=== PATIENT | male | born 1950 | race African-American/Black ===

== ENCOUNTER 2022-09-01 08:48 | Observation (INO) ==
--- NOTE | 2022-09-01 08:55 | DR.GENAD ---
HPI Time Seen Time Seen by Provider: 09/01/22 08:54 COVID-19 Coronavirus risk:travel/contact w/high risk person: No Has patient experienced Coronavirus symptoms: No Nurses notes reviewed Nurses Notes Review: Yes PE Vital Signs Vitals: Temperature 99.7 F Pulse Rate 105 Respiratory Rate 18 Blood Pressure 133/72 O2 Sat by Pulse Oximetry 98 ROR Labs Reviewed Result Diagrams: 09/04/22 06:25 09/04/22 06:25 Laboratory: 09/01/22 09:30 Urine,Clean Catch Urine Culture - Final 09/01/22 10:10 Blood Blood Culture - Preliminary 09/01/22 09:54 Blood Blood Culture - Preliminary WBC 7.9 X10^3/uL (3.6-10.0) 09/01/22 09:54 RBC 5.78 X10^6/uL (4.7-6.0) 09/01/22 09:54 Hgb 13.1 g/dL (13.5-18.0) L 09/01/22 09:54 Hct 41.0 % (42.0-54.0) L 09/01/22 09:54 MCV 70.9 fL (80.0-100.0) L 09/01/22 09:54 MCH 22.7 pg (27.0-34.0) L 09/01/22 09:54 MCHC 31.9 g/dL (33.0-35.0) L 09/01/22 09:54 RDW 18.6 % (11.6-16.5) H 09/01/22 09:54 Plt Count 168 X10^3/uL (150.0-450.0) 09/01/22 09:54 Plt Count Comment Adequate (ADEQUATE) 09/01/22 09:54 MPV 9.1 fL (7.4-11.0) 09/01/22 09:54 Neut % (Auto) 60.1 % (42.0-75.0) 09/01/22 09:54 Lymph % (Auto) 18.2 % (21.0-51.0) L 09/01/22 09:54 [place] % (Auto) 19.9 % (0.0-13.0) H 09/01/22 09:54 Eos % (Auto) 0.3 % (0.9-2.9) L 09/01/22 09:54 Baso % (Auto) 1.5 % (0.2-1.0) H 09/01/22 09:54 Neut # (Auto) 4.8 x10^3/uL (2.2-4.8) 09/01/22 09:54 Lymph # (Auto) 1.4 X10^3/uL (1.3-2.9) 09/01/22 09:54 [place] # (Auto) 1.6 x10^3/uL (0.3-0.8) H 09/01/22 09:54 Eos # (Auto) 0.0 x10^3/uL (0.0-0.2) 09/01/22 09:54 Baso # (Auto) 0.1 X10^3/uL (0.0-0.1) 09/01/22 09:54 Absolute Nucleated RBC 0.1 /100WBC 09/01/22 09:54 Plt Morphology Comment Normal (NORMAL) 09/01/22 09:54 RBC Morphology Abnormal (NORMAL) 09/01/22 09:54 Hypochromasia Slight A 09/01/22 09:54 Anisocytosis Slight A 09/01/22 09:54 Microcytosis Slight A 09/01/22 09:54 Target Cells Present 09/01/22 09:54 PT 14.3 SECONDS (11.8-14.3) 09/01/22 09:54 INR Target Range - 09/01/22 09:54 INR 1.14 (0.8-1.3) 09/01/22 09:54 APTT 31.9 SECONDS (22.9-36.5) 09/01/22 09:54 PTT Comment - 09/01/22 09:54 Sodium 134 mmol/L (136-145) L 09/01/22 10:10 Corrected Sodium 135 mmol/L (136-145) L 09/01/22 10:10 Potassium 4.2 mmol/L (3.5-5.1) 09/01/22 10:10 Chloride 100 mmol/L (98-107) 09/01/22 10:10 Carbon Dioxide 25.3 mmol/L (21-32) 09/01/22 10:10 BUN 7 mg/dL (7-18) 09/01/22 10:10 Creatinine 1.31 mg/dL (0.70-1.30) H 09/01/22 10:10 Est GFR (MDRD) Af Amer > 60 (>60) 09/01/22 10:10 Est GFR (MDRD) Non-Af 57 (>60) L 09/01/22 10:10 Glucose 151 mg/dL (65-99) H 09/01/22 10:10 Lactic Acid 2.2 mmol/L (0.4-2.0) H 09/01/22 10:10 Calcium 8.7 mg/dL (8.5-10.1) 09/01/22 10:10 Corrected Calcium 9.3 mg/dL (8.5-10.1) 09/01/22 10:10 Phosphorus 2.9 mg/dL (2.6-4.7) 09/01/22 09:54 Magnesium 1.5 mg/dL (2.0-2.9) L 09/01/22 09:54 Total Bilirubin 0.70 mg/dL (0.2-1.0) 09/01/22 10:10 AST 30 Units/L (15-37) 09/01/22 10:10 ALT 28 Units/L (12-78) 09/01/22 10:10 Alkaline Phosphatase 79 Units/L (46-116) 09/01/22 10:10 Creatine Kinase 222 Units/L (39-308) 09/01/22 10:10 Troponin I High Sens 33.7 ng/L (4.0-60.0) 09/01/22 10:10 B-Natriuretic Peptide 20.0 pg/mL (0-79) 09/01/22 09:54 Total Protein 6.9 g/dL (6.4-8.2) 09/01/22 10:10 Albumin 3.2 g/dL (3.4-5.0) L 09/01/22 10:10 Globulin 3.7 g/dL (2.5-4.5) 09/01/22 10:10 Albumin/Globulin Ratio 0.9 Ratio (1.1-2.1) L 09/01/22 10:10 Amylase 89 Units/L (25-115) 09/01/22 09:54 Lipase 61 Units/L (73-393) L 09/01/22 09:54 Specimen Type Clean catch urine 09/01/22 09:30 Urine Color Yellow (YELLOW) 09/01/22 09:30 Urine Appearance Cloudy (CLEAR) 09/01/22 09:30 Urine pH 6.0 (5.0 - 8.0) 09/01/22 09:30 Ur Specific [place] 1.020 (1.000-1.030) 09/01/22 09:30 Urine Protein 2+ (NEGATIVE) 09/01/22 09:30 Urine Glucose (UA) 4+ (NEGATIVE) 09/01/22 09:30 Urine Ketones 1+ (NEGATIVE) 09/01/22 09:30 Urine Blood 2+ (NEGATIVE) 09/01/22 09:30 Urine Nitrite Positive (NEGATIVE) 09/01/22 09:30 Urine Bilirubin Negative (NEGATIVE) 09/01/22 09:30 Urine Urobilinogen Normal (NORMAL) 09/01/22 09:30 Ur Leukocyte Esterase 2+ (NEGATIVE) 09/01/22 09:30 Urine RBC 0-2 /HPF (0-3) 09/01/22 09:30 Urine WBC 30-50 /HPF (0-5) A 09/01/22 09:30 Ur Squamous Epith Cells Few /HPF (NEGATIVE) 09/01/22 09:30 Urine Bacteria 2+ /HPF (NEGATIVE) 09/01/22 09:30 Hyaline Casts Rare /LPF (NEGATIVE) 09/01/22 09:30 Ur Culture Indicated? Yes/culture set up 09/01/22 09:30 Acetone, Semi-Quant Negative (NEGATIVE) 09/01/22 09:54 SARS-CoV-2 (PCR) Positive (NEGATIVE) A 09/01/22 09:20 Influenza Type A (PCR) Negative (NEGATIVE) 09/01/22 09:20 Influenza Type B (PCR) Negative (NEGATIVE) 09/01/22 09:20 RSV (PCR) Negative (NEGATIVE) 09/01/22 09:20 Opioid Opioid Risk Tool Total: 0 Total Score Risk Category: Low Risk Copyright: Guy RODRIGUEZ predicting aberrant behaviors Discharge Plan Diagnosis Discharge Problem: Sepsis, COVID-19 virus infection, Acute dehydration, Bronchitis, Hyperglycemia, UTI (urinary tract infection) Discharge Plan Patient Disposition: 09 ADMITTED INPATIENT Condition: Stable
--- NOTE | 2022-09-01 09:11 | EKG ---
Test Reason : HTN Blood Pressure : */* mmHG Vent. Rate : 106 BPM Atrial Rate : 106 BPM P-R Int : 144 ms QRS Dur : 88 ms QT Int : 332 ms P-R-T Axes : 64 28 14 degrees QTc Int : 441 ms Sinus tachycardia Nonspecific T wave abnormality Abnormal ECG No previous ECGs available Confirmed by Victor Manuel Myles ([id number]) on 09/01/2022 3:52:55 PM Referred By: Confirmed By: Victor Manuel Myles
[2022-09-01 09:13] VITALS: BMI 37.8
--- NOTE | 2022-09-01 10:05 | CT ---
HISTORYFever and chillsSTUDYCT abdomen and pelvis without contrastCOMPARISONNoneTECHNIQUEMultiple axial images of the abdomen and pelvis were obtained from the lung bases to the pubic symphysis without the administration of IV contrast. Dose reduction techniques including Automated Exposure Control (AEC) and adjustment of mA and kV were utilized.FINDINGSThe visualized portions of the lung bases are unremarkable . The liver, spleen, pancreas, kidneys, and adrenal glands are unremarkable in their CT appearance. The gallbladder is unremarkable in its CT appearance . No significant mesenteric lymphadenopathy or stranding can be observed. No free fluid or free air is seen within the abdomen. The appendix is not definitely identified. However, no pericecal stranding or fluid can be identified to suggest secondary signs of appendicitis. No bowel wall thickening or bowel dilatation is present. The colon is unremarkable. Specifically, there is no diverticulosis noted within the sigmoid colon. A small [place] diverticulum extending from the region of the left UVJ is observed measuring 1.9 x 1.6 cm. The bony structures are grossly intact.IMPRESSIONA small Hutch diverticulum of the urinary bladder is observed measuring 1.9 x 1.6 cm as detailed above. Otherwise, unremarkable evaluation of the abdomen and pelvis without contrast.Electronically signed by: ELENA TORRES (Sep 01, 2022 10:04:47)
--- NOTE | 2022-09-01 10:08 | CT ---
HISTORYPAIN IN LEFT HIP, TRUMASTUDYLOWER EXT W/O CONCOMPARISONNoneTECHNIQUEMultiple axial images of the left hip were obtained from the superior portions of the iliac crest to the level the proximal femur without administration of IV contrast. Sagittal and coronal reformats were performed and reviewed. Dose reduction techniques including Automated Exposure Control (AEC) and adjustment of mA and kV were utilized.FINDINGSNo acute cortical disruption or dislocation can be identified. Superior and inferior pubic rami appear unremarkable. The femoral neck appears intact. The visualized portions of the soft tissue pelvis are unremarkable.IMPRESSIONUnremarkable evaluation of the left hip.Electronically signed by: ELENA TORRES (Sep 01, 2022 10:07:38)
--- NOTE | 2022-09-01 10:13 | RAD ---
HISTORYCOUGHSTUDYSingle-view chestCOMPARISONNoneFINDINGSThe trachea is midline. The cardiac silhouette is enlarged with a tortuous thoracic aorta . The lungs are clear without focal infiltrate or effusion. The bony thorax is unremarkable.IMPRESSIONNo acute cardiopulmonary disease.Electronically signed by: ELENA TORRES (Sep 01, 2022 10:11:29)
[2022-09-01 10:18] LABS: BASOPHILS # (AUTO) 0.1 X10^3/uL (0.0-0.1); BASOPHILS % (AUTO) 1.5 % (0.2-1.0); EOSINOPHILS % (AUTO) 0.3 % (0.9-2.9); HEMOGLOBIN 13.1 g/dL (13.5-18.0); LYMPHOCYTES # (AUTO) 1.4 X10^3/uL (1.3-2.9); LYMPHOCYTES % (AUTO) 18.2 % (21.0-51.0); MEAN CORPUSCULAR HEMOGLOBIN 22.7 pg (27.0-34.0); MEAN CORPUSCULAR HGB CONC 31.9 g/dL (33.0-35.0); MEAN CORPUSCULAR VOLUME 70.9 fL (80.0-100.0); MEAN PLATELET VOLUME 9.1 fL (7.4-11.0); MONOCYTES # (AUTO) 1.6 x10^3/uL (0.3-0.8); MONOCYTES % (AUTO) 19.9 % (0.0-13.0); NEUTROPHILS # (AUTO) 4.8 x10^3/uL (2.2-4.8); NEUTROPHILS % (AUTO) 60.1 % (42.0-75.0); RED BLOOD COUNT 5.78 X10^6/uL (4.7-6.0); RED CELL DISTRIBUTION WIDTH 18.6 % (11.6-16.5); WHITE BLOOD COUNT 7.9 X10^3/uL (3.6-10.0)
[2022-09-01 10:35] LABS: ALANINE AMINOTRANSFERASE 28 Units/L (12-78); ALBUMIN 3.2 g/dL (3.4-5.0); ALKALINE PHOSPHATASE 79 Units/L (46-116); ASPARTATE AMINO TRANSFERASE 30 Units/L (15-37); BLOOD UREA NITROGEN 7 mg/dL (7-18); CALCIUM 8.7 mg/dL (8.5-10.1); CARBON DIOXIDE 25.3 mmol/L (21-32); CHLORIDE 100 mmol/L (98-107); COR CA(FOR HYPOALB) 9.3 mg/dL (8.5-10.1); COR NA(FOR HYPERGLY) 135 mmol/L (136-145); CREATINE KINASE 222 Units/L (39-308); CREATININE 1.31 mg/dL (0.70-1.30); SODIUM 134 mmol/L (136-145); TOTAL PROTEIN 6.9 g/dL (6.4-8.2); eGFR NON BLACK RACES 57 (>60)
[2022-09-01 10:38] LABS: LACTIC ACID 2.2 mmol/L (0.4-2.0)
[2022-09-01 10:59] LABS: PLATELET MORPHOLOGY COMMENT NORMAL (NORMAL)
[2022-09-01 11:00] LABS: ANISOCYTOSIS SLIGHT; HYPOCHROMASIA SLIGHT; TARGET CELLS PRESENT
[2022-09-01 11:01] LABS: MICROCYTOSIS SLIGHT
[2022-09-01] MEDS ORDERED: ZOSYN VIAL 3.375 GRAMS 3.375 G in NS 100 ML IV 100 ML IV ONE (12:48)
[2022-09-01] MEDS ORDERED: ZOSYN VIAL 3.375 GRAMS IV ONE (12:57)
[2022-09-01] MEDS ORDERED: NS 250 ML IV 250 ML IV ONE (12:58)
[2022-09-01 13:15] LABS: BILIRUBIN,URINE NEGATIVE (NEGATIVE); BLOOD/HEMOGLOBIN,URINE 2+ (NEGATIVE); GLUCOSE, URINE 4+ (NEGATIVE); KETONES,URINE 1+ (NEGATIVE); LEUKOCYTE ESTERASE ,URINE 2+ (NEGATIVE); NITRITES,URINE POSITIVE (NEGATIVE); PROTEIN,URINE 2+ (NEGATIVE); UROBILINOGEN,URINE NORMAL (NORMAL)
[2022-09-01 13:18] LABS: SERUM ACETONE NEGATIVE (NEGATIVE)
[2022-09-01 13:23] LABS: APPEARANCE,URINE CLOUDY (CLEAR); COLOR,URINE YELLOW (YELLOW)
[2022-09-01 13:24] LABS: BACTERIA,URINE 2+ /HPF (NEGATIVE); HYALINE CASTS, URINE RARE /LPF (NEGATIVE); RBC,URINE 0-2 /HPF (0-3); SQUAMOUS EPITHELIAL CELL,UR FEW /HPF (NEGATIVE)
[2022-09-01 13:50] LABS: INR 1.14 (0.8-1.3)
[2022-09-01 13:52] LABS: MAGNESIUM 1.5 mg/dL (2.0-2.9); PHOSPHORUS 2.9 mg/dL (2.6-4.7)
[2022-09-01 14:03] LABS: ABG BASE EXCESS 2.6 mmol/L (-2.0-2.0); ABG HCO3 26.2 mmol/L (22-26)
[2022-09-01 14:04] LABS: ABG ALLEN TEST POS
[2022-09-01] MEDS ORDERED: NS 1,000 ML IV 1,000 ML ONE (14:32)
[2022-09-01 15:54] LABS: LACTIC ACID 1.9 mmol/L (0.4-2.0)
[2022-09-01] MEDS: ZOSYN VIAL 3.375 GRAMS 3.375 G in NS 100 ML IV 100 ML IV SCH ×2 (16:08→21:05)
[2022-09-01] MEDS: NS 1,000 ML IV 1,000 ML IV SCH ×2 (16:09→23:41)
[2022-09-01] MEDS ORDERED: ULTRAM PO PRN ×2 (16:26→20:12)
[2022-09-01] MEDS ORDERED: TYLENOL 325 MG TAB PO PRN (16:26)
[2022-09-01] MEDS ORDERED: MAGNESIUM SULFATE 1 GRAM/100 mL PREMIX 1 G/100 ML BAG IV PRN (16:33)
[2022-09-01] MEDS ORDERED: MAGNESIUM SULFATE 1 GRAM/100 mL PREMIX 1 G/100 ML BAG IV ONE (16:49)
[2022-09-01] MEDS ORDERED: TYLENOL 325 MG TAB PO ONE (16:49)
[2022-09-01] MEDS ORDERED: ASPIRIN PO SCH (17:00)
[2022-09-01] MEDS ORDERED: LIPITOR TAB 20 MG PO SCH (17:00)
[2022-09-01] MEDS ORDERED: PriLOSEC PO SCH (17:00)
[2022-09-01] MEDS ORDERED: ZANAFLEX PO PRN ×2 (17:00→20:14)
[2022-09-01] MEDS ORDERED: SNACK - Diabetic Appropriate PO SCH (20:00)
[2022-09-01] MEDS ORDERED: CARDURA PO SCH (21:00)
[2022-09-01] MEDS ORDERED: GLUCOTROL PO SCH (21:00)
[2022-09-01] MEDS: ZESTRIL TAB 10 MG PO SCH (21:05)
[2022-09-01] MEDS: CARDURA PO SCH (21:05)
[2022-09-01 22:10] LABS: LACTIC ACID 1.1 mmol/L (0.4-2.0)
[2022-09-01] MEDS: TYLENOL 325 MG TAB PO PRN (23:41)
[2022-09-02 03:05] LABS: ALANINE AMINOTRANSFERASE 30 Units/L (12-78); ALBUMIN 2.7 g/dL (3.4-5.0); ALKALINE PHOSPHATASE 72 Units/L (46-116); ASPARTATE AMINO TRANSFERASE 39 Units/L (15-37); BLOOD UREA NITROGEN 9 mg/dL (7-18); CALCIUM 7.9 mg/dL (8.5-10.1); CARBON DIOXIDE 26.3 mmol/L (21-32); CHLORIDE 102 mmol/L (98-107); COR CA(FOR HYPOALB) 8.9 mg/dL (8.5-10.1); COR NA(FOR HYPERGLY) 137 mmol/L (136-145); CREATININE 1.37 mg/dL (0.70-1.30); MAGNESIUM 1.8 mg/dL (2.0-2.9); SODIUM 135 mmol/L (136-145); TOTAL PROTEIN 5.9 g/dL (6.4-8.2); eGFR NON BLACK RACES 54 (>60)
[2022-09-02 03:18] LABS: BASOPHILS # (AUTO) 0.1 X10^3/uL (0.0-0.1); BASOPHILS % (AUTO) 1.8 % (0.2-1.0); EOSINOPHILS % (AUTO) 0.5 % (0.9-2.9); HEMATOCRIT 37.4 % (42.0-54.0); HEMOGLOBIN 11.8 g/dL (13.5-18.0); LYMPHOCYTES % (AUTO) 19.2 % (21.0-51.0); MEAN CORPUSCULAR HEMOGLOBIN 22.3 pg (27.0-34.0); MEAN CORPUSCULAR HGB CONC 31.5 g/dL (33.0-35.0); MEAN CORPUSCULAR VOLUME 70.7 fL (80.0-100.0); MEAN PLATELET VOLUME 9.3 fL (7.4-11.0); MONOCYTES # (AUTO) 1.2 x10^3/uL (0.3-0.8); MONOCYTES % (AUTO) 23.3 % (0.0-13.0); NEUTROPHILS # (AUTO) 2.7 x10^3/uL (2.2-4.8); NEUTROPHILS % (AUTO) 55.2 % (42.0-75.0); RED CELL DISTRIBUTION WIDTH 18.4 % (11.6-16.5); WHITE BLOOD COUNT 4.9 X10^3/uL (3.6-10.0)
[2022-09-02 03:31] LABS: BAND NEUTROPHILS % 3 % (0-10); BASOPHILS % (MANUAL) 2 % (0-1)
[2022-09-02 03:32] LABS: ANISOCYTOSIS SLIGHT; HYPOCHROMASIA 1+; MICROCYTOSIS SLIGHT; PLATELET MORPHOLOGY COMMENT NORMAL (NORMAL); SCHISTOCYTES SLIGHT; TARGET CELLS 1+
[2022-09-02] MEDS: ZOSYN VIAL 3.375 GRAMS 3.375 G in NS 100 ML IV 100 ML IV SCH ×3 (05:06→21:10)
[2022-09-02] MEDS: MAGNESIUM SULFATE 1 GRAM/100 mL PREMIX 1 G/100 ML BAG IV PRN ×2 (05:56→09:29)
[2022-09-02] MEDS: NS 1,000 ML IV 1,000 ML IV SCH ×3 (05:56→14:28)
[2022-09-02] MEDS ORDERED: NYSTATIN POWDER TOP PRN (06:17)
[2022-09-02] MEDS ORDERED: VITAMIN D3 25 mcg (1,000 UNITS) PO SCH (09:00)
[2022-09-02] MEDS ORDERED: [UNRECOGNIZED DRUG - OTHER] PO SCH (09:00)
[2022-09-02] MEDS ORDERED: ZESTRIL TAB 20 MG PO SCH (09:00)
[2022-09-02] MEDS: LIPITOR TAB 10 MG PO SCH (09:29)
[2022-09-02] MEDS: ASPIRIN PO SCH (09:29)
[2022-09-02] MEDS: ZESTRIL TAB 10 MG PO SCH (09:29)
[2022-09-02] MEDS: PriLOSEC PO SCH (09:29)
--- NOTE | 2022-09-02 10:46 | DR.H&P ---
H&P History & Physical for Day of: H&P Date: 09/02/22 Chief Complaint Chief Complaint: Decreased po intake Weakness Cough Allergies Allergies Allergy/AdvReac Type Severity Reaction Status Date / Time No Known Allergies Allergy Verified 09/01/22 11:40 History of Present Illness History of Present Illness: Pt is a 72 year old male presenting with cough, weakness, and decreased po intake for the past 2-3 days. Labs/imaging: Wbc 4.9, Hgb 11.8, Plt 152, Na 135, K 3.9, Creatinine 1.37, Glucose 163, ABG: pH 7.47, pCO2 36, pO2 69, HCO3 26, O2sat 95%, UA positive for nitrite, Urine/Blood culture pending. COVID positive. CTAP was obtained that revealed: A small [place] diverticulum of the urinary bladder is observed measuring 1.9 x 1.6 cm as detailed above. Otherwise, unremarkable evaluation of the abdomen and pelvis without contrast. CXR: no acute cardiopulmonary findings. Pt was admitted for COVID-19, Dehydration, and acute cystitis. Order IVF NS and IV antibiotics Zosyn, and anti-tussive medications. Restart home medications. Continue to closely monitor and follow up labs in the morning. Past Medical History Past Medical History: Diabetes and Hypertension Family History Family Medical History: Cancer and PA Social History Type of Tobacco Use: None Does any household member use tobacco: No Alcohol Use: None Drug Use: None Medications Home Medications: No Known Allergies Allergy (Verified 09/01/22 11:40) CONTINUE taking the following medications aspirin 325 mg tablet 325 mg PO DAILY 09/01/22 [History] atorvastatin 20 mg tablet (Lipitor) 10 mg PO DAILY 09/01/22 [History] calcium carbonate 600 mg calcium (1,500 mg) tablet (Calcium) 1,200 mg PO DAILY 09/01/22 [History] cholecalciferol (vitamin D3) 25 mcg (1,000 unit) tablet 25 mcg PO DAILY 09/01/22 [History] doxazosin 2 mg tablet 2 mg PO HS 09/01/22 [History] glipizide 5 mg tablet 5 mg PO BID 09/01/22 [History] lisinopril 20 mg tablet 10 mg PO DAILY 09/01/22 [History] loratadine 10 mg disintegrating tablet 10 mg PO QDAY 09/01/22 [History] magnesium oxide 420 mg tablet 420 mg PO BID 09/01/22 [History] metformin 500 mg tablet 500 mg PO BID 09/01/22 [History] methocarbamol 750 mg tablet 75 mg PO TID PRN 09/01/22 [History] omeprazole 20 mg capsule,delayed release 20 mg PO DAILY 09/01/22 [History] potassium and sodium monobasic phosphate 155 mg-350 mg tablet 2 tab PO DAILY 09/01/22 [History] sodium di- and monophosphate-potassium phos monobasic 250 mg tablet (Phospha Neutral) 2 tab PO DAILY 09/01/22 [History] tramadol 50 mg tablet 50 mg PO BID PRN 09/01/22 [History] Labs Result Diagrams: 09/02/22 02:35 09/02/22 02:35 Labs: 09/01/22 09:30 Urine,Clean Catch Urine Culture - Preliminary Laboratory WBC 4.9 X10^3/uL (3.6-10.0) 09/02/22 02:35 RBC 5.30 X10^6/uL (4.7-6.0) 09/02/22 02:35 Hgb 11.8 g/dL (13.5-18.0) L 09/02/22 02:35 Hct 37.4 % (42.0-54.0) L 09/02/22 02:35 MCV 70.7 fL (80.0-100.0) L 09/02/22 02:35 MCH 22.3 pg (27.0-34.0) L 09/02/22 02:35 MCHC 31.5 g/dL (33.0-35.0) L 09/02/22 02:35 RDW 18.4 % (11.6-16.5) H 09/02/22 02:35 Plt Count 152 X10^3/uL (150.0-450.0) 09/02/22 02:35 Plt Count Comment Adequate (ADEQUATE) 09/02/22 02:35 MPV 9.3 fL (7.4-11.0) 09/02/22 02:35 Neut % (Auto) 55.2 % (42.0-75.0) 09/02/22 02:35 Lymph % (Auto) 19.2 % (21.0-51.0) L 09/02/22 02:35 [place] % (Auto) 23.3 % (0.0-13.0) H 09/02/22 02:35 Eos % (Auto) 0.5 % (0.9-2.9) L 09/02/22 02:35 Baso % (Auto) 1.8 % (0.2-1.0) H 09/02/22 02:35 Neut # (Auto) 2.7 x10^3/uL (2.2-4.8) 09/02/22 02:35 Lymph # (Auto) 1.0 X10^3/uL (1.3-2.9) L 09/02/22 02:35 [place] # (Auto) 1.2 x10^3/uL (0.3-0.8) H 09/02/22 02:35 Eos # (Auto) 0.0 x10^3/uL (0.0-0.2) 09/02/22 02:35 Baso # (Auto) 0.1 X10^3/uL (0.0-0.1) 09/02/22 02:35 Absolute Nucleated RBC 0.2 /100WBC 09/02/22 02:35 Total Counted 100 09/02/22 02:35 Neutrophils % (Manual) 60 % (39-76) 09/02/22 02:35 Band Neutrophils % 3 % (0-10) 09/02/22 02:35 Lymphocytes % (Manual) 16 % (13-43) 09/02/22 02:35 Monocytes % (Manual) 19 % (4-9) H 09/02/22 02:35 Basophils % (Manual) 2 % (0-1) H 09/02/22 02:35 Plt Morphology Comment Normal (NORMAL) 09/02/22 02:35 RBC Morphology Abnormal (NORMAL) 09/02/22 02:35 Hypochromasia 1+ A 09/02/22 02:35 Anisocytosis Slight A 09/02/22 02:35 Microcytosis Slight A 09/02/22 02:35 Target Cells 1+ A 09/02/22 02:35 Schistocytes Slight A 09/02/22 02:35 PT 14.3 SECONDS (11.8-14.3) 09/01/22 09:54 INR Target Range - 09/01/22 09:54 INR 1.14 (0.8-1.3) 09/01/22 09:54 APTT 31.9 SECONDS (22.9-36.5) 09/01/22 09:54 PTT Comment - 09/01/22 09:54 Sample Site Rr 09/01/22 13:32 ABG pH 7.470 (7.35-7.45) H 09/01/22 13:32 ABG pCO2 36.0 mmHg (35.0-45.0) 09/01/22 13:32 ABG pO2 69.0 mmHg (80.0-100.0) L 09/01/22 13:32 ABG HCO3 26.2 mmol/L (22-26) H 09/01/22 13:32 ABG O2 Saturation 95.0 % (90-100) 09/01/22 13:32 ABG Base Excess 2.6 mmol/L (-2.0-2.0) H 09/01/22 13:32 Umer Test Pos 09/01/22 13:32 A-a Gradient 36.0 mmHg 09/01/22 13:32 FiO2 21.0 09/01/22 13:32 Blood Gas Comments [place] well 09/01/22 13:32 Sodium 135 mmol/L (136-145) L 09/02/22 02:35 Corrected Sodium 137 mmol/L (136-145) 09/02/22 02:35 Potassium 3.9 mmol/L (3.5-5.1) 09/02/22 02:35 Chloride 102 mmol/L (98-107) 09/02/22 02:35 Carbon Dioxide 26.3 mmol/L (21-32) 09/02/22 02:35 BUN 9 mg/dL (7-18) 09/02/22 02:35 Creatinine 1.37 mg/dL (0.70-1.30) H 09/02/22 02:35 Est GFR (MDRD) Af Amer > 60 (>60) 09/02/22 02:35 Est GFR (MDRD) Non-Af 54 (>60) L 09/02/22 02:35 Glucose 163 mg/dL (65-99) H 09/02/22 02:35 POC Glucose (mg/dL) 170 mg/dL (65-99) H 09/02/22 05:08 Lactic Acid 1.1 mmol/L (0.4-2.0) 09/01/22 21:45 Calcium 7.9 mg/dL (8.5-10.1) L 09/02/22 02:35 Corrected Calcium 8.9 mg/dL (8.5-10.1) 09/02/22 02:35 Phosphorus 2.9 mg/dL (2.6-4.7) 09/01/22 09:54 Magnesium 1.8 mg/dL (2.0-2.9) L 09/02/22 02:35 Total Bilirubin 0.60 mg/dL (0.2-1.0) 09/02/22 02:35 AST 39 Units/L (15-37) H 09/02/22 02:35 ALT 30 Units/L (12-78) 09/02/22 02:35 Alkaline Phosphatase 72 Units/L (46-116) 09/02/22 02:35 Creatine Kinase 222 Units/L (39-308) 09/01/22 21:45 Troponin I High Sens 32.1 ng/L (4.0-60.0) 09/02/22 02:35 B-Natriuretic Peptide 20.0 pg/mL (0-79) 09/01/22 09:54 Total Protein 5.9 g/dL (6.4-8.2) L 09/02/22 02:35 Albumin 2.7 g/dL (3.4-5.0) L 09/02/22 02:35 Globulin 3.2 g/dL (2.5-4.5) 09/02/22 02:35 Albumin/Globulin Ratio 0.8 Ratio (1.1-2.1) L 09/02/22 02:35 Amylase 89 Units/L (25-115) 09/01/22 09:54 Lipase 61 Units/L (73-393) L 09/01/22 09:54 Specimen Type Clean catch urine 09/01/22 09:30 Urine Color Yellow (YELLOW) 09/01/22 09:30 Urine Appearance Cloudy (CLEAR) 09/01/22 09:30 Urine pH 6.0 (5.0 - 8.0) 09/01/22 09:30 Ur Specific [place] 1.020 (1.000-1.030) 09/01/22 09:30 Urine Protein 2+ (NEGATIVE) 09/01/22 09:30 Urine Glucose (UA) 4+ (NEGATIVE) 09/01/22 09:30 Urine Ketones 1+ (NEGATIVE) 09/01/22 09:30 Urine Blood 2+ (NEGATIVE) 09/01/22 09:30 Urine Nitrite Positive (NEGATIVE) 09/01/22 09:30 Urine Bilirubin Negative (NEGATIVE) 09/01/22 09:30 Urine Urobilinogen Normal (NORMAL) 09/01/22 09:30 Ur Leukocyte Esterase 2+ (NEGATIVE) 09/01/22 09:30 Urine RBC 0-2 /HPF (0-3) 09/01/22 09:30 Urine WBC 30-50 /HPF (0-5) A 09/01/22 09:30 Ur Squamous Epith Cells Few /HPF (NEGATIVE) 09/01/22 09:30 Urine Bacteria 2+ /HPF (NEGATIVE) 09/01/22 09:30 Hyaline Casts Rare /LPF (NEGATIVE) 09/01/22 09:30 Ur Culture Indicated? Yes/culture set up 09/01/22 09:30 Acetone, Semi-Quant Negative (NEGATIVE) 09/01/22 09:54 SARS-CoV-2 (PCR) Positive (NEGATIVE) A 09/01/22 09:20 Influenza Type A (PCR) Negative (NEGATIVE) 09/01/22 09:20 Influenza Type B (PCR) Negative (NEGATIVE) 09/01/22 09:20 RSV (PCR) Negative (NEGATIVE) 09/01/22 09:20 Review of Systems Constitutional: Chills and Weakness Eyes: No Symptoms Reported ENT: No Symptoms Reported Respiratory: No Symptoms Reported Cardiovascular: No Symptoms Reported Gastrointestinal: No Symptoms Reported Genitourinary: No Symptoms Reported Musculoskeletal: No Symptoms Reported Skin: No Symptoms Reported Neurological: No Symptoms Reported Physical Exam Vital Signs: Temperature 98.7 F Pulse Rate [Left Brachial] 106 Pulse Rate 88 Respiratory Rate 21 Blood Pressure [Left Arm] 149/71 Blood Pressure 155/66 O2 Sat by Pulse Oximetry 97 Oriented: Normal Eyes: Normal Ear: Normal Nose: Normal Throat: Normal Respiratory: Clear Throughout Cardiovascular: Normal : Normal Auscultation: Bowel Sounds: Normal Palpation: Normal Tenderness: Normal Skin: Normal Musculoskeletal: Normal Psychiatric: Normal Mood Description: Calm and Appropriate Affect: Normal Speech Pattern: Clear and Appropriate Assessment/Plan (1) COVID-19 virus infection: Status: Acute (2) Acute dehydration: Status: Acute (3) UTI (urinary tract infection): Status: Acute Review H&P Reviewed: Yes Patient was examined?: Yes
[2022-09-02] MEDS: IMODIUM CAP 2 MG PO PRN ×2 (16:47→21:10)
[2022-09-02] MEDS: CARDURA PO SCH (20:18)
[2022-09-02] MEDS: TUSSIONEX PENNKINETIC SUSP PO PRN (20:19)
[2022-09-02] MEDS: TESSALON PERLES PO PRN (20:19)
[2022-09-02] MEDS: TYLENOL 325 MG TAB PO PRN (20:20)
[2022-09-03] MEDS: NS 1,000 ML IV 1,000 ML IV SCH ×5 (04:02→22:30)
[2022-09-03 05:03] LABS: BASOPHILS # (AUTO) 0.1 X10^3/uL (0.0-0.1); BASOPHILS % (AUTO) 1.5 % (0.2-1.0); EOSINOPHILS % (AUTO) 0.2 % (0.9-2.9); HEMATOCRIT 36.6 % (42.0-54.0); HEMOGLOBIN 11.8 g/dL (13.5-18.0); LYMPHOCYTES # (AUTO) 1.7 X10^3/uL (1.3-2.9); MEAN CORPUSCULAR HEMOGLOBIN 22.6 pg (27.0-34.0); MEAN CORPUSCULAR HGB CONC 32.3 g/dL (33.0-35.0); MEAN PLATELET VOLUME 9.3 fL (7.4-11.0); MONOCYTES # (AUTO) 1.1 x10^3/uL (0.3-0.8); MONOCYTES % (AUTO) 29.5 % (0.0-13.0); NEUTROPHILS # (AUTO) 0.9 x10^3/uL (2.2-4.8); NEUTROPHILS % (AUTO) 23.8 % (42.0-75.0); RED BLOOD COUNT 5.22 X10^6/uL (4.7-6.0); RED CELL DISTRIBUTION WIDTH 18.2 % (11.6-16.5); WHITE BLOOD COUNT 3.9 X10^3/uL (3.6-10.0)
[2022-09-03] MEDS: ZOSYN VIAL 3.375 GRAMS 3.375 G in NS 100 ML IV 100 ML IV SCH ×3 (05:05→21:10)
[2022-09-03 05:15] LABS: ALANINE AMINOTRANSFERASE 36 Units/L (12-78); ALBUMIN 2.6 g/dL (3.4-5.0); ALKALINE PHOSPHATASE 66 Units/L (46-116); ASPARTATE AMINO TRANSFERASE 47 Units/L (15-37); BLOOD UREA NITROGEN 8 mg/dL (7-18); CARBON DIOXIDE 27.2 mmol/L (21-32); CHLORIDE 104 mmol/L (98-107); COR CA(FOR HYPOALB) 9.1 mg/dL (8.5-10.1); CREATININE 1.31 mg/dL (0.70-1.30); MAGNESIUM 1.9 mg/dL (2.0-2.9); SODIUM 136 mmol/L (136-145); TOTAL PROTEIN 5.9 g/dL (6.4-8.2); eGFR NON BLACK RACES 57 (>60)
[2022-09-03 05:55] LABS: BAND NEUTROPHILS % 5 % (0-10); BASOPHILS % (MANUAL) 1 % (0-1)
[2022-09-03 05:56] LABS: GIANT PLATELET RARE; PLATELET MORPHOLOGY COMMENT ABNORMAL (NORMAL)
[2022-09-03 05:57] LABS: ANISOCYTOSIS SLIGHT; HYPOCHROMASIA 1+; MICROCYTOSIS SLIGHT; SCHISTOCYTES SLIGHT; SMUDGE CELLS SLIGHT; TARGET CELLS SLIGHT
[2022-09-03] MEDS: MAGNESIUM SULFATE 1 GRAM/100 mL PREMIX 1 G/100 ML BAG IV PRN ×2 (09:36→13:56)
[2022-09-03] MEDS: PriLOSEC PO SCH (09:39)
[2022-09-03] MEDS: ZESTRIL TAB 10 MG PO SCH (09:39)
[2022-09-03] MEDS: ASPIRIN PO SCH (09:39)
[2022-09-03] MEDS: LIPITOR TAB 10 MG PO SCH (09:39)
[2022-09-03] MEDS: TYLENOL 325 MG TAB PO PRN ×2 (09:48→20:10)
[2022-09-03] MEDS: TESSALON PERLES PO PRN ×2 (09:48→20:09)
[2022-09-03] MEDS: CARDURA PO SCH (20:08)
[2022-09-03] MEDS: TUSSIONEX PENNKINETIC SUSP PO PRN (20:10)
[2022-09-04] MEDS: ZOSYN VIAL 3.375 GRAMS 3.375 G in NS 100 ML IV 100 ML IV SCH ×2 (05:02→16:05)
[2022-09-04] MEDS: NS 1,000 ML IV 1,000 ML IV SCH (06:27)
[2022-09-04 06:55] LABS: BASOPHILS # (AUTO) 0.1 X10^3/uL (0.0-0.1); BASOPHILS % (AUTO) 2.2 % (0.2-1.0); EOSINOPHILS % (AUTO) 0.3 % (0.9-2.9); HEMATOCRIT 37.4 % (42.0-54.0); HEMOGLOBIN 11.6 g/dL (13.5-18.0); LYMPHOCYTES # (AUTO) 2.2 X10^3/uL (1.3-2.9); LYMPHOCYTES % (AUTO) 59.2 % (21.0-51.0); MEAN CORPUSCULAR HEMOGLOBIN 22.3 pg (27.0-34.0); MEAN CORPUSCULAR HGB CONC 31.1 g/dL (33.0-35.0); MEAN CORPUSCULAR VOLUME 71.8 fL (80.0-100.0); MEAN PLATELET VOLUME 9.8 fL (7.4-11.0); MONOCYTES # (AUTO) 0.6 x10^3/uL (0.3-0.8); MONOCYTES % (AUTO) 15.3 % (0.0-13.0); NEUTROPHILS # (AUTO) 0.9 x10^3/uL (2.2-4.8); RED BLOOD COUNT 5.21 X10^6/uL (4.7-6.0); RED CELL DISTRIBUTION WIDTH 18.3 % (11.6-16.5); WHITE BLOOD COUNT 3.8 X10^3/uL (3.6-10.0)
[2022-09-04 07:05] LABS: ALANINE AMINOTRANSFERASE 30 Units/L (12-78); ALBUMIN 2.7 g/dL (3.4-5.0); ALKALINE PHOSPHATASE 66 Units/L (46-116); ASPARTATE AMINO TRANSFERASE 45 Units/L (15-37); BLOOD UREA NITROGEN 10 mg/dL (7-18); CARBON DIOXIDE 23.3 mmol/L (21-32); CHLORIDE 105 mmol/L (98-107); COR NA(FOR HYPERGLY) 137 mmol/L (136-145); SODIUM 137 mmol/L (136-145); TOTAL PROTEIN 6.1 g/dL (6.4-8.2); eGFR NON BLACK RACES > 60 (>60)
[2022-09-04 07:14] LABS: GIANT PLATELET RARE; HYPOCHROMASIA 1+; MICROCYTOSIS SLIGHT
[2022-09-04 07:15] LABS: PLATELET MORPHOLOGY COMMENT ABNORMAL (NORMAL)
[2022-09-04] MEDS: ZESTRIL TAB 10 MG PO SCH (08:37)
[2022-09-04] MEDS: LIPITOR TAB 10 MG PO SCH (08:37)
[2022-09-04] MEDS: ASPIRIN PO SCH (08:37)
[2022-09-04] MEDS: PriLOSEC PO SCH (08:37)
--- NOTE | 2022-09-04 08:41 | PCM.PROG ---
Progress Note Progress Note for Day of Date of Exam: 09/03/22 Subjective Subjective: Pt is a 72 year old male admitted for COVID-19, dehydration, and urinary tract infection. This morning he reports some improvement in his symptoms and weakness. No acute events overnight. Labs/imaging: Wbc 3.9, Hgb 11.8, Plt 146, Na 136, K 4.0, Creatinine 1.31, Glucose 105, UA positive for n itrite, Urine/Blood culture pending. COVID positive. Pt is currently receiving IVF NS and IV antibiotics Zosyn, and anti-tussive medications. Home medications have been resumed. Will order physical therapy. There does appear to be random occurrence of non-atrial fibrillation, non-life threatening cardiac arrhythmia that will need to be followed up with cardiology outpatient. Otherwise continue with current treatment plan. Continue to closely monitor and follow up labs in the morning. Past Medical Family Social History Allergies: Allergies No Known Allergies Allergy (Verified 09/01/22 11:40) Review of Systems ROS: No change since H&P Vital Signs and I&O's Vital Signs: Temperature 98.8 F Pulse Rate [Left Brachial] 106 Pulse Rate 91 Respiratory Rate 25 Blood Pressure [Left Arm] 149/71 Blood Pressure 153/72 O2 Sat by Pulse Oximetry 93 Intake and Output: Intake & Output 09/01/22 09/02/22 09/03/22 09/04/22 23:59 23:59 23:59 23:59 Intake Total 892 / 892 2942 / 2942 2669 / 2669 600 / 600 Balance 892 / 892 2942 / 2942 2669 / 2669 600 / 600 Physical Exam Oriented: Normal Eyes: Normal Ear: Normal Nose: Normal Throat: Normal Respiratory: Normal Cardiovascular: Normal : Normal Auscultation: Bowel Sounds: Normal Tenderness: Normal Skin: Normal Musculoskeletal: Normal Psychiatric: Normal Mood Description: Calm and Appropriate Affect: Normal Speech Pattern: Clear and Appropriate Laboratory and Diagnostics Result Diagrams: 09/04/22 06:25 09/04/22 06:25 Labs: 09/01/22 09:30 Urine,Clean Catch Urine Culture - Final 09/01/22 10:10 Blood Blood Culture - Preliminary 09/01/22 09:54 Blood Blood Culture - Preliminary Laboratory WBC 3.8 X10^3/uL (3.6-10.0) 09/04/22 06:25 RBC 5.21 X10^6/uL (4.7-6.0) 09/04/22 06:25 Hgb 11.6 g/dL (13.5-18.0) L 09/04/22 06:25 Hct 37.4 % (42.0-54.0) L 09/04/22 06:25 MCV 71.8 fL (80.0-100.0) L 09/04/22 06:25 MCH 22.3 pg (27.0-34.0) L 09/04/22 06:25 MCHC 31.1 g/dL (33.0-35.0) L 09/04/22 06:25 RDW 18.3 % (11.6-16.5) H 09/04/22 06:25 Plt Count 144 X10^3/uL (150.0-450.0) L 09/04/22 06:25 Plt Count Comment Decreased (ADEQUATE) 09/04/22 06:25 MPV 9.8 fL (7.4-11.0) 09/04/22 06:25 Neut % (Auto) 23.0 % (42.0-75.0) L 09/04/22 06:25 Lymph % (Auto) 59.2 % (21.0-51.0) H 09/04/22 06:25 [place] % (Auto) 15.3 % (0.0-13.0) H 09/04/22 06:25 Eos % (Auto) 0.3 % (0.9-2.9) L 09/04/22 06:25 Baso % (Auto) 2.2 % (0.2-1.0) H 09/04/22 06:25 Neut # (Auto) 0.9 x10^3/uL (2.2-4.8) L 09/04/22 06:25 Lymph # (Auto) 2.2 X10^3/uL (1.3-2.9) 09/04/22 06:25 [place] # (Auto) 0.6 x10^3/uL (0.3-0.8) 09/04/22 06:25 Eos # (Auto) 0.0 x10^3/uL (0.0-0.2) 09/04/22 06:25 Baso # (Auto) 0.1 X10^3/uL (0.0-0.1) 09/04/22 06:25 Absolute Nucleated RBC 0.1 /100WBC 09/04/22 06:25 Total Counted 100 09/03/22 04:10 Neutrophils % (Manual) 21 % (39-76) L 09/03/22 04:10 Band Neutrophils % 5 % (0-10) 09/03/22 04:10 Lymphocytes % (Manual) 45 % (13-43) H 09/03/22 04:10 Monocytes % (Manual) 28 % (4-9) H 09/03/22 04:10 Basophils % (Manual) 1 % (0-1) 09/03/22 04:10 Atypical Lymphocytes Few 09/03/22 04:10 Smudge Cells Slight A 09/03/22 04:10 Giant Platelets Rare 09/04/22 06:25 Plt Morphology Comment Abnormal (NORMAL) 09/04/22 06:25 RBC Morphology Abnormal (NORMAL) 09/04/22 06:25 Hypochromasia 1+ A 09/04/22 06:25 Anisocytosis Slight A 09/03/22 04:10 Microcytosis Slight A 09/04/22 06:25 Target Cells Slight A 09/03/22 04:10 Schistocytes Slight A 09/03/22 04:10 PT 14.3 SECONDS (11.8-14.3) 09/01/22 09:54 INR Target Range - 09/01/22 09:54 INR 1.14 (0.8-1.3) 09/01/22 09:54 APTT 31.9 SECONDS (22.9-36.5) 09/01/22 09:54 PTT Comment - 09/01/22 09:54 Sample Site Rr 09/01/22 13:32 ABG pH 7.470 (7.35-7.45) H 09/01/22 13:32 ABG pCO2 36.0 mmHg (35.0-45.0) 09/01/22 13:32 ABG pO2 69.0 mmHg (80.0-100.0) L 09/01/22 13:32 ABG HCO3 26.2 mmol/L (22-26) H 09/01/22 13:32 ABG O2 Saturation 95.0 % (90-100) 09/01/22 13:32 ABG Base Excess 2.6 mmol/L (-2.0-2.0) H 09/01/22 13:32 Umer Test Pos 09/01/22 13:32 A-a Gradient 36.0 mmHg 09/01/22 13:32 FiO2 21.0 09/01/22 13:32 Blood Gas Comments Odilon well 09/01/22 13:32 Sodium 137 mmol/L (136-145) 09/04/22 06:25 Corrected Sodium 137 mmol/L (136-145) 09/04/22 06:25 Potassium 4.3 mmol/L (3.5-5.1) 09/04/22 06:25 Chloride 105 mmol/L (98-107) 09/04/22 06:25 Carbon Dioxide 23.3 mmol/L (21-32) 09/04/22 06:25 BUN 10 mg/dL (7-18) 09/04/22 06:25 Creatinine 1.20 mg/dL (0.70-1.30) 09/04/22 06:25 Est GFR (MDRD) Af Amer > 60 (>60) 09/04/22 06:25 Est GFR (MDRD) Non-Af > 60 (>60) 09/04/22 06:25 Glucose 114 mg/dL (65-99) H 09/04/22 06:25 POC Glucose (mg/dL) 114 mg/dL (65-99) H 09/04/22 05:09 Lactic Acid 1.1 mmol/L (0.4-2.0) 09/01/22 21:45 Calcium 8.0 mg/dL (8.5-10.1) L 09/04/22 06:25 Corrected Calcium 9.0 mg/dL (8.5-10.1) 09/04/22 06:25 Phosphorus 2.9 mg/dL (2.6-4.7) 09/01/22 09:54 Magnesium 2.0 mg/dL (2.0-2.9) 09/04/22 06:25 Total Bilirubin 0.40 mg/dL (0.2-1.0) 09/04/22 06:25 AST 45 Units/L (15-37) H 09/04/22 06:25 ALT 30 Units/L (12-78) 09/04/22 06:25 Alkaline Phosphatase 66 Units/L (46-116) 09/04/22 06:25 Creatine Kinase 222 Units/L (39-308) 09/01/22 21:45 Troponin I High Sens 32.1 ng/L (4.0-60.0) 09/02/22 02:35 B-Natriuretic Peptide 20.0 pg/mL (0-79) 09/01/22 09:54 Total Protein 6.1 g/dL (6.4-8.2) L 09/04/22 06:25 Albumin 2.7 g/dL (3.4-5.0) L 09/04/22 06:25 Globulin 3.4 g/dL (2.5-4.5) 09/04/22 06:25 Albumin/Globulin Ratio 0.8 Ratio (1.1-2.1) L 09/04/22 06:25 Amylase 89 Units/L (25-115) 09/01/22 09:54 Lipase 61 Units/L (73-393) L 09/01/22 09:54 Specimen Type Clean catch urine 09/01/22 09:30 Urine Color Yellow (YELLOW) 09/01/22 09:30 Urine Appearance Cloudy (CLEAR) 09/01/22 09:30 Urine pH 6.0 (5.0 - 8.0) 09/01/22 09:30 Ur Specific Goessel 1.020 (1.000-1.030) 09/01/22 09:30 Urine Protein 2+ (NEGATIVE) 09/01/22 09:30 Urine Glucose (UA) 4+ (NEGATIVE) 09/01/22 09:30 Urine Ketones 1+ (NEGATIVE) 09/01/22 09:30 Urine Blood 2+ (NEGATIVE) 09/01/22 09:30 Urine Nitrite Positive (NEGATIVE) 09/01/22 09:30 Urine Bilirubin Negative (NEGATIVE) 09/01/22 09:30 Urine Urobilinogen Normal (NORMAL) 09/01/22 09:30 Ur Leukocyte Esterase 2+ (NEGATIVE) 09/01/22 09:30 Urine RBC 0-2 /HPF (0-3) 09/01/22 09:30 Urine WBC 30-50 /HPF (0-5) A 09/01/22 09:30 Ur Squamous Epith Cells Few /HPF (NEGATIVE) 09/01/22 09:30 Urine Bacteria 2+ /HPF (NEGATIVE) 09/01/22 09:30 Hyaline Casts Rare /LPF (NEGATIVE) 09/01/22 09:30 Ur Culture Indicated? Yes/culture set up 09/01/22 09:30 Acetone, Semi-Quant Negative (NEGATIVE) 09/01/22 09:54 SARS-CoV-2 (PCR) Positive (NEGATIVE) A 09/01/22 09:20 Influenza Type A (PCR) Negative (NEGATIVE) 09/01/22 09:20 Influenza Type B (PCR) Negative (NEGATIVE) 09/01/22 09:20 RSV (PCR) Negative (NEGATIVE) 09/01/22 09:20 Plan (1) COVID-19 virus infection: Status: Acute (2) Acute dehydration: Status: Acute (3) UTI (urinary tract infection): Status: Acute (4) Arrhythmia: Status: Acute
[2022-09-04] MEDS ORDERED: SOLU-Medrol 125 MG VIAL IVP ONE (08:46)
--- NOTE | 2022-09-04 11:47 | W.DIS.FURT ---
Summary of Discharge Discharge Summary of Date Date of Exam: 09/04/22 Admission Date Date of Admission: 09/01/22 Admission Diagnosis Patient Problems (Updated 09/04/22 @ 08:47 by Gee Bazzi) Sepsis (Acute) A41.9 COVID-19 virus infection (Acute) U07.1 Acute dehydration (Acute) E86.0 Bronchitis (Acute) J40 Hyperglycemia (Acute) R73.9 UTI (urinary tract infection) (Acute) N39.0 Hospital Course: Pt is a 72 year old male admitted for COVID-19, dehydration, and urinary tract infection. His hospital/treatment course included: IVF NS and IV antibiotics Zosyn, and anti-tussive medications. Home medications were resumed. Physical therapy. While in hospital he did appear to have asymptomatic intermittent occurrence of non-atrial fibrillation, non-life threatening cardiac arrhythmia, pt will be set up to follow with cardiology outpatient. Pt responded well to treatment, tolerating po intake, and did not require any supplemental oxygen on discharge. Home PT will be set up by case management. Pt discharged in stable condition. Instructed to follow up with pcp in 1 week. Vital Signs: Vital Signs (72 hours) 09/01/22 12:00 09/01/22 12:15 09/01/22 12:30 Temperature Pulse Rate 97 H 101 H 97 H Pulse Rate [Left Brachial] Respiratory Rate Blood Pressure Blood Pressure [Left Arm] O2 Sat by Pulse Oximetry 98 98 98 Oxygen Delivery Method Oxygen Flow Rate FIO2% 09/01/22 12:45 09/01/22 13:00 09/01/22 13:10 Temperature Pulse Rate 99 H 98 H 105 H Pulse Rate [Left Brachial] Respiratory Rate Blood Pressure Blood Pressure [Left Arm] O2 Sat by Pulse Oximetry 98 97 98 Oxygen Delivery Method Oxygen Flow Rate FIO2% 09/01/22 13:10 09/01/22 13:33 09/01/22 14:00 Temperature Pulse Rate Pulse Rate [Left Brachial] 106 H Respiratory Rate 18 Blood Pressure 133/72 Blood Pressure [Left Arm] 149/71 O2 Sat by Pulse Oximetry 96 Oxygen Delivery Method Nasal Cannula Oxygen Flow Rate FIO2% 09/01/22 16:21 09/01/22 15:00 09/01/22 15:00 Temperature 101.6 F H Pulse Rate 100 H Pulse Rate [Left Brachial] Respiratory Rate 24 Blood Pressure 157/72 Blood Pressure [Left Arm] O2 Sat by Pulse Oximetry 97 Oxygen Delivery Method Oxygen Flow Rate FIO2% 09/01/22 16:00 09/01/22 16:00 09/01/22 16:59 Temperature Pulse Rate 95 H Pulse Rate [Left Brachial] Respiratory Rate 20 20 Blood Pressure 154/72 Blood Pressure [Left Arm] O2 Sat by Pulse Oximetry 96 Oxygen Delivery Method Oxygen Flow Rate FIO2% 09/01/22 17:00 09/01/22 17:00 09/01/22 18:01 Temperature 100.3 F H Pulse Rate 96 H 98 H Pulse Rate [Left Brachial] Respiratory Rate 21 24 Blood Pressure 113/80 Blood Pressure [Left Arm] O2 Sat by Pulse Oximetry 96 97 Oxygen Delivery Method Oxygen Flow Rate FIO2% 09/01/22 18:01 09/01/22 19:00 09/01/22 20:00 Temperature 99.1 F Pulse Rate 85 79 Pulse Rate [Left Brachial] Respiratory Rate 30 H 28 H Blood Pressure 140/68 142/64 157/72 Blood Pressure [Left Arm] O2 Sat by Pulse Oximetry 97 97 Oxygen Delivery Method Nasal Cannula Oxygen Flow Rate 2 FIO2% 09/01/22 17:59 09/01/22 20:50 09/01/22 20:50 Temperature Pulse Rate 78 Pulse Rate [Left Brachial] Respiratory Rate 20 Blood Pressure Blood Pressure [Left Arm] O2 Sat by Pulse Oximetry 96 Oxygen Delivery Method Room Air Oxygen Flow Rate FIO2% 09/01/22 21:00 09/01/22 22:00 09/01/22 23:00 Temperature Pulse Rate 83 81 84 Pulse Rate [Left Brachial] Respiratory Rate 24 15 21 Blood Pressure 156/67 133/60 144/66 Blood Pressure [Left Arm] O2 Sat by Pulse Oximetry 97 97 97 Oxygen Delivery Method Nasal Cannula Nasal Cannula Nasal Cannula Oxygen Flow Rate 2 2 2 FIO2% 09/01/22 19:00 09/01/22 23:41 09/02/22 00:00 Temperature 100.1 F H Pulse Rate 84 Pulse Rate [Left Brachial] Respiratory Rate 20 18 Blood Pressure 144/64 Blood Pressure [Left Arm] O2 Sat by Pulse Oximetry 97 Oxygen Delivery Method Nasal Cannula Nasal Cannula Oxygen Flow Rate 2 2 FIO2% 09/02/22 01:00 09/02/22 00:41 09/02/22 02:00 Temperature 99.5 F Pulse Rate 86 90 Pulse Rate [Left Brachial] Respiratory Rate 15 20 27 H Blood Pressure 143/65 163/69 Blood Pressure [Left Arm] O2 Sat by Pulse Oximetry 95 95 Oxygen Delivery Method Nasal Cannula Nasal Cannula Oxygen Flow Rate 2 2 FIO2% 09/02/22 03:00 09/02/22 04:00 09/02/22 05:00 Temperature 98.9 F Pulse Rate 86 83 84 Pulse Rate [Left Brachial] Respiratory Rate 16 14 18 Blood Pressure 126/58 113/58 107/58 Blood Pressure [Left Arm] O2 Sat by Pulse Oximetry 95 96 96 Oxygen Delivery Method Nasal Cannula Nasal Cannula Nasal Cannula Oxygen Flow Rate 2 2 2 FIO2% 09/02/22 06:00 09/02/22 07:00 09/02/22 08:00 Temperature 98.7 F Pulse Rate 91 H 84 87 Pulse Rate [Left Brachial] Respiratory Rate 22 17 15 Blood Pressure 146/72 146/63 161/70 Blood Pressure [Left Arm] O2 Sat by Pulse Oximetry 97 95 96 Oxygen Delivery Method Nasal Cannula Nasal Cannula Nasal Cannula Oxygen Flow Rate 2 2 2 FIO2% 09/02/22 09:00 09/02/22 07:00 09/02/22 10:00 Temperature Pulse Rate 92 H 88 Pulse Rate [Left Brachial] Respiratory Rate 19 21 Blood Pressure 129/63 155/66 Blood Pressure [Left Arm] O2 Sat by Pulse Oximetry 95 97 Oxygen Delivery Method Nasal Cannula Nasal Cannula Nasal Cannula Oxygen Flow Rate 2 2 2 FIO2% 09/02/22 11:00 09/02/22 12:00 09/02/22 13:00 Temperature 98.8 F Pulse Rate 98 H 97 H 90 Pulse Rate [Left Brachial] Respiratory Rate 17 17 21 Blood Pressure 152/65 102/59 135/64 Blood Pressure [Left Arm] O2 Sat by Pulse Oximetry 94 L 94 L 97 Oxygen Delivery Method Nasal Cannula Nasal Cannula Nasal Cannula Oxygen Flow Rate 2 2 2 FIO2% 09/02/22 14:00 09/02/22 15:00 09/02/22 16:00 Temperature 98.7 F Pulse Rate 87 90 81 Pulse Rate [Left Brachial] Respiratory Rate 17 17 21 Blood Pressure 134/67 110/72 138/66 Blood Pressure [Left Arm] O2 Sat by Pulse Oximetry 97 99 99 Oxygen Delivery Method Nasal Cannula Nasal Cannula Nasal Cannula Oxygen Flow Rate 2 2 2 FIO2% 09/02/22 17:00 09/02/22 18:00 09/02/22 19:00 Temperature Pulse Rate 86 91 H Pulse Rate [Left Brachial] Respiratory Rate 17 18 Blood Pressure 155/70 149/58 Blood Pressure [Left Arm] O2 Sat by Pulse Oximetry 97 98 Oxygen Delivery Method Nasal Cannula Nasal Cannula Nasal Cannula Oxygen Flow Rate 2 2 2 FIO2% 09/02/22 19:00 09/02/22 20:20 09/02/22 20:00 Temperature 100.1 F H Pulse Rate 87 90 Pulse Rate [Left Brachial] Respiratory Rate 16 20 18 Blood Pressure 145/68 131/58 Blood Pressure [Left Arm] O2 Sat by Pulse Oximetry 97 96 Oxygen Delivery Method Nasal Cannula Nasal Cannula Oxygen Flow Rate 2 2 FIO2% 09/02/22 21:00 09/02/22 22:00 09/02/22 23:00 Temperature Pulse Rate 91 H 90 85 Pulse Rate [Left Brachial] Respiratory Rate 22 22 20 Blood Pressure 126/60 116/73 123/64 Blood Pressure [Left Arm] O2 Sat by Pulse Oximetry 95 95 92 L Oxygen Delivery Method Nasal Cannula Nasal Cannula Nasal Cannula Oxygen Flow Rate 2 2 2 FIO2% 09/02/22 21:20 09/03/22 00:00 09/03/22 01:00 Temperature 99.5 F Pulse Rate 88 88 Pulse Rate [Left Brachial] Respiratory Rate 20 14 22 Blood Pressure 134/72 133/61 Blood Pressure [Left Arm] O2 Sat by Pulse Oximetry 94 L 94 L Oxygen Delivery Method Nasal Cannula Nasal Cannula Oxygen Flow Rate 2 2 FIO2% 09/03/22 02:00 09/03/22 03:00 09/03/22 04:00 Temperature Pulse Rate 80 88 90 Pulse Rate [Left Brachial] Respiratory Rate 22 22 18 Blood Pressure 142/61 140/62 114/61 Blood Pressure [Left Arm] O2 Sat by Pulse Oximetry 97 97 96 Oxygen Delivery Method Nasal Cannula Nasal Cannula Nasal Cannula Oxygen Flow Rate 2 2 2 FIO2% 09/03/22 05:00 09/03/22 06:00 09/03/22 07:00 Temperature 98.9 F Pulse Rate 79 80 81 Pulse Rate [Left Brachial] Respiratory Rate 20 20 20 Blood Pressure 131/67 164/68 125/58 Blood Pressure [Left Arm] O2 Sat by Pulse Oximetry 99 96 99 Oxygen Delivery Method Nasal Cannula Nasal Cannula Nasal Cannula Oxygen Flow Rate 2 2 2 FIO2% 09/03/22 09:48 09/03/22 07:00 09/03/22 08:00 Temperature 98.9 F Pulse Rate 79 Pulse Rate [Left Brachial] Respiratory Rate 20 20 Blood Pressure 133/67 Blood Pressure [Left Arm] O2 Sat by Pulse Oximetry 93 L Oxygen Delivery Method Nasal Cannula Nasal Cannula Oxygen Flow Rate 2 2 FIO2% 09/03/22 09:45 09/03/22 10:00 09/03/22 11:00 Temperature Pulse Rate 76 88 Pulse Rate [Left Brachial] Respiratory Rate 20 18 19 Blood Pressure 133/67 134/93 117/57 Blood Pressure [Left Arm] O2 Sat by Pulse Oximetry 94 L 94 L 95 Oxygen Delivery Method Nasal Cannula Nasal Cannula Nasal Cannula Oxygen Flow Rate 1 1 1 FIO2% 09/03/22 12:00 09/03/22 13:00 09/03/22 10:48 Temperature 98.7 F Pulse Rate 93 H 68 Pulse Rate [Left Brachial] Respiratory Rate 26 H 14 20 Blood Pressure 125/60 107/55 Blood Pressure [Left Arm] O2 Sat by Pulse Oximetry 97 97 Oxygen Delivery Method Nasal Cannula Nasal Cannula Oxygen Flow Rate 1 1 FIO2% 09/02/22 20:07 09/02/22 20:07 09/02/22 21:00 Temperature Pulse Rate 88 Pulse Rate [Left Brachial] Respiratory Rate 20 Blood Pressure 145/68 131/58 Blood Pressure [Left Arm] O2 Sat by Pulse Oximetry 97 Oxygen Delivery Method Oxygen Flow Rate FIO2% 09/02/22 21:00 09/02/22 21:09 09/02/22 21:09 Temperature Pulse Rate 96 H 95 H Pulse Rate [Left Brachial] Respiratory Rate 19 24 Blood Pressure 126/60 Blood Pressure [Left Arm] O2 Sat by Pulse Oximetry 96 95 Oxygen Delivery Method Oxygen Flow Rate FIO2% 09/02/22 22:00 09/02/22 22:00 09/02/22 23:00 Temperature Pulse Rate 101 H Pulse Rate [Left Brachial] Respiratory Rate 14 Blood Pressure 116/73 123/64 Blood Pressure [Left Arm] O2 Sat by Pulse Oximetry 91 L Oxygen Delivery Method Oxygen Flow Rate FIO2% 09/02/22 23:00 09/03/22 00:00 09/03/22 00:00 Temperature Pulse Rate 88 88 Pulse Rate [Left Brachial] Respiratory Rate 21 14 Blood Pressure 133/72 Blood Pressure [Left Arm] O2 Sat by Pulse Oximetry 89 L 90 L Oxygen Delivery Method Oxygen Flow Rate FIO2% 09/03/22 01:00 09/03/22 01:00 09/03/22 02:00 Temperature Pulse Rate 96 H Pulse Rate [Left Brachial] Respiratory Rate 15 Blood Pressure 133/61 142/61 Blood Pressure [Left Arm] O2 Sat by Pulse Oximetry 89 L Oxygen Delivery Method Oxygen Flow Rate FIO2% 09/03/22 02:00 09/03/22 03:00 09/03/22 03:00 Temperature Pulse Rate 83 87 Pulse Rate [Left Brachial] Respiratory Rate 13 19 Blood Pressure 128/58 Blood Pressure [Left Arm] O2 Sat by Pulse Oximetry 94 L 98 Oxygen Delivery Method Oxygen Flow Rate FIO2% 09/03/22 04:00 09/03/22 04:27 09/03/22 04:27 Temperature Pulse Rate 86 83 Pulse Rate [Left Brachial] Respiratory Rate 17 21 Blood Pressure 114/61 Blood Pressure [Left Arm] O2 Sat by Pulse Oximetry 95 97 Oxygen Delivery Method Oxygen Flow Rate FIO2% 09/03/22 05:00 09/03/22 05:02 09/03/22 05:02 Temperature Pulse Rate 80 79 Pulse Rate [Left Brachial] Respiratory Rate 16 13 Blood Pressure 131/67 Blood Pressure [Left Arm] O2 Sat by Pulse Oximetry 97 98 Oxygen Delivery Method Oxygen Flow Rate FIO2% 09/03/22 06:00 09/03/22 06:09 09/03/22 06:09 Temperature Pulse Rate 81 93 H Pulse Rate [Left Brachial] Respiratory Rate 15 16 Blood Pressure 164/68 Blood Pressure [Left Arm] O2 Sat by Pulse Oximetry 99 96 Oxygen Delivery Method Oxygen Flow Rate FIO2% 09/03/22 07:00 09/03/22 08:00 09/03/22 08:06 Temperature Pulse Rate 78 80 Pulse Rate [Left Brachial] Respiratory Rate 23 16 Blood Pressure 125/58 Blood Pressure [Left Arm] O2 Sat by Pulse Oximetry 99 100 Oxygen Delivery Method Oxygen Flow Rate FIO2% 09/03/22 08:06 09/03/22 09:00 09/03/22 09:00 Temperature Pulse Rate 91 H 79 Pulse Rate [Left Brachial] Respiratory Rate 14 13 Blood Pressure 133/67 Blood Pressure [Left Arm] O2 Sat by Pulse Oximetry 96 93 L Oxygen Delivery Method Oxygen Flow Rate FIO2% 09/03/22 10:00 09/03/22 10:00 09/03/22 11:00 Temperature Pulse Rate 85 88 Pulse Rate [Left Brachial] Respiratory Rate 13 24 Blood Pressure 134/93 Blood Pressure [Left Arm] O2 Sat by Pulse Oximetry 92 L 95 Oxygen Delivery Method Oxygen Flow Rate FIO2% 09/03/22 11:01 09/03/22 11:01 09/03/22 12:00 Temperature 98.5 F Pulse Rate 88 Pulse Rate [Left Brachial] Respiratory Rate 19 Blood Pressure 117/57 125/60 Blood Pressure [Left Arm] O2 Sat by Pulse Oximetry 95 Oxygen Delivery Method Oxygen Flow Rate FIO2% 09/03/22 12:00 09/03/22 13:00 09/03/22 13:00 Temperature Pulse Rate 93 H 68 Pulse Rate [Left Brachial] Respiratory Rate 26 H 13 Blood Pressure 107/55 Blood Pressure [Left Arm] O2 Sat by Pulse Oximetry 97 97 Oxygen Delivery Method Oxygen Flow Rate FIO2% 09/03/22 14:07 09/03/22 14:28 09/03/22 14:28 Temperature Pulse Rate 95 H 89 Pulse Rate [Left Brachial] Respiratory Rate 24 Blood Pressure 108/55 Blood Pressure [Left Arm] O2 Sat by Pulse Oximetry 91 L 90 L Oxygen Delivery Method Oxygen Flow Rate FIO2% 09/03/22 15:00 09/03/22 15:01 09/03/22 15:01 Temperature Pulse Rate 107 H 85 Pulse Rate [Left Brachial] Respiratory Rate 25 H 33 H Blood Pressure 115/58 Blood Pressure [Left Arm] O2 Sat by Pulse Oximetry 92 L 90 L Oxygen Delivery Method Oxygen Flow Rate 1 FIO2% 09/03/22 15:03 09/03/22 15:03 09/03/22 16:00 Temperature 98.5 F Pulse Rate 86 98 H Pulse Rate [Left Brachial] Respiratory Rate 28 H 31 H Blood Pressure 102/50 119/58 Blood Pressure [Left Arm] O2 Sat by Pulse Oximetry 91 L 93 L Oxygen Delivery Method Oxygen Flow Rate 1 2 FIO2% 09/03/22 17:00 09/03/22 18:00 09/03/22 19:00 Temperature Pulse Rate 78 90 86 Pulse Rate [Left Brachial] Respiratory Rate 28 H 14 22 Blood Pressure 133/63 140/67 148/67 Blood Pressure [Left Arm] O2 Sat by Pulse Oximetry 93 L 94 L 94 L Oxygen Delivery Method Nasal Cannula Oxygen Flow Rate 2 1 1 FIO2% 09/03/22 19:00 09/03/22 20:10 09/03/22 20:00 Temperature 98.7 F Pulse Rate 82 Pulse Rate [Left Brachial] Respiratory Rate 20 26 H Blood Pressure 142/62 Blood Pressure [Left Arm] O2 Sat by Pulse Oximetry 94 L Oxygen Delivery Method Nasal Cannula Nasal Cannula Oxygen Flow Rate 1 1 FIO2% 09/03/22 21:00 09/03/22 22:00 09/03/22 23:00 Temperature Pulse Rate 84 92 H 82 Pulse Rate [Left Brachial] Respiratory Rate 18 18 16 Blood Pressure 129/72 134/70 143/75 Blood Pressure [Left Arm] O2 Sat by Pulse Oximetry 97 94 L 94 L Oxygen Delivery Method Nasal Cannula Nasal Cannula Nasal Cannula Oxygen Flow Rate 1 1 1 FIO2% 09/03/22 22:40 09/02/22 22:50 09/03/22 00:00 Temperature Pulse Rate Pulse Rate [Left Brachial] Respiratory Rate Blood Pressure Blood Pressure [Left Arm] O2 Sat by Pulse Oximetry Oxygen Delivery Method Nasal Cannula Room Air Nasal Cannula Oxygen Flow Rate 1 2 FIO2% 24 28 09/04/22 00:00 09/04/22 01:00 09/03/22 21:10 Temperature 99.0 F Pulse Rate 81 81 Pulse Rate [Left Brachial] Respiratory Rate 14 16 20 Blood Pressure 160/70 125/63 Blood Pressure [Left Arm] O2 Sat by Pulse Oximetry 94 L 96 Oxygen Delivery Method Nasal Cannula Nasal Cannula Oxygen Flow Rate 1 1 FIO2% 09/04/22 02:00 09/04/22 03:00 09/04/22 04:00 Temperature 98.3 F Pulse Rate 82 75 86 Pulse Rate [Left Brachial] Respiratory Rate 18 18 20 Blood Pressure 150/81 119/71 122/63 Blood Pressure [Left Arm] O2 Sat by Pulse Oximetry 100 95 95 Oxygen Delivery Method Nasal Cannula Nasal Cannula Nasal Cannula Oxygen Flow Rate 1 1 1 FIO2% 09/04/22 05:00 09/04/22 06:00 09/04/22 07:00 Temperature 98.8 F Pulse Rate 85 86 91 H Pulse Rate [Left Brachial] Respiratory Rate 18 22 25 H Blood Pressure 144/67 159/80 153/72 Blood Pressure [Left Arm] O2 Sat by Pulse Oximetry 94 L 94 L 93 L Oxygen Delivery Method Nasal Cannula Nasal Cannula Nasal Cannula Oxygen Flow Rate 1 1 2 FIO2% 09/04/22 08:00 09/04/22 07:00 09/04/22 09:00 Temperature Pulse Rate 82 89 Pulse Rate [Left Brachial] Respiratory Rate 18 33 H Blood Pressure 144/74 140/64 Blood Pressure [Left Arm] O2 Sat by Pulse Oximetry 93 L 91 L Oxygen Delivery Method Nasal Cannula Nasal Cannula Oxygen Flow Rate 1 1 1 FIO2% 09/04/22 09:13 09/04/22 09:14 Temperature Pulse Rate Pulse Rate [Left Brachial] Respiratory Rate Blood Pressure Blood Pressure [Left Arm] O2 Sat by Pulse Oximetry 96 Oxygen Delivery Method Nasal Cannula Oxygen Flow Rate 1 FIO2% 24 Labs: Laboratory Last Values WBC 3.8 X10^3/uL (3.6-10.0) 09/04/22 06:25 RBC 5.21 X10^6/uL (4.7-6.0) 09/04/22 06:25 Hgb 11.6 g/dL (13.5-18.0) L 09/04/22 06:25 Hct 37.4 % (42.0-54.0) L 09/04/22 06:25 MCV 71.8 fL (80.0-100.0) L 09/04/22 06:25 MCH 22.3 pg (27.0-34.0) L 09/04/22 06:25 MCHC 31.1 g/dL (33.0-35.0) L 09/04/22 06:25 RDW 18.3 % (11.6-16.5) H 09/04/22 06:25 Plt Count 144 X10^3/uL (150.0-450.0) L 09/04/22 06:25 Plt Count Comment Decreased (ADEQUATE) 09/04/22 06:25 MPV 9.8 fL (7.4-11.0) 09/04/22 06:25 Neut % (Auto) 23.0 % (42.0-75.0) L 09/04/22 06:25 Lymph % (Auto) 59.2 % (21.0-51.0) H 09/04/22 06:25 Wolfe % (Auto) 15.3 % (0.0-13.0) H 09/04/22 06:25 Eos % (Auto) 0.3 % (0.9-2.9) L 09/04/22 06:25 Baso % (Auto) 2.2 % (0.2-1.0) H 09/04/22 06:25 Neut # (Auto) 0.9 x10^3/uL (2.2-4.8) L 09/04/22 06:25 Lymph # (Auto) 2.2 X10^3/uL (1.3-2.9) 09/04/22 06:25 Wolfe # (Auto) 0.6 x10^3/uL (0.3-0.8) 09/04/22 06:25 Eos # (Auto) 0.0 x10^3/uL (0.0-0.2) 09/04/22 06:25 Baso # (Auto) 0.1 X10^3/uL (0.0-0.1) 09/04/22 06:25 Absolute Nucleated RBC 0.1 /100WBC 09/04/22 06:25 Total Counted 100 09/03/22 04:10 Neutrophils % (Manual) 21 % (39-76) L 09/03/22 04:10 Band Neutrophils % 5 % (0-10) 09/03/22 04:10 Lymphocytes % (Manual) 45 % (13-43) H 09/03/22 04:10 Monocytes % (Manual) 28 % (4-9) H 09/03/22 04:10 Basophils % (Manual) 1 % (0-1) 09/03/22 04:10 Atypical Lymphocytes Few 09/03/22 04:10 Smudge Cells Slight A 09/03/22 04:10 Giant Platelets Rare 09/04/22 06:25 Plt Morphology Comment Abnormal (NORMAL) 09/04/22 06:25 RBC Morphology Abnormal (NORMAL) 09/04/22 06:25 Hypochromasia 1+ A 09/04/22 06:25 Anisocytosis Slight A 09/03/22 04:10 Microcytosis Slight A 09/04/22 06:25 Target Cells Slight A 09/03/22 04:10 Schistocytes Slight A 09/03/22 04:10 PT 14.3 SECONDS (11.8-14.3) 09/01/22 09:54 INR Target Range - 09/01/22 09:54 INR 1.14 (0.8-1.3) 09/01/22 09:54 APTT 31.9 SECONDS (22.9-36.5) 09/01/22 09:54 PTT Comment - 01/21/23 09:54 Sample Site Rr 09/01/22 13:32 ABG pH 7.470 (7.35-7.45) H 09/01/22 13:32 ABG pCO2 36.0 mmHg (35.0-45.0) 09/01/22 13:32 ABG pO2 69.0 mmHg (80.0-100.0) L 09/01/22 13:32 ABG HCO3 26.2 mmol/L (22-26) H 09/01/22 13:32 ABG O2 Saturation 95.0 % (90-100) 09/01/22 13:32 ABG Base Excess 2.6 mmol/L (-2.0-2.0) H 09/01/22 13:32 Umer Test Pos 09/01/22 13:32 A-a Gradient 36.0 mmHg 09/01/22 13:32 FiO2 21.0 09/01/22 13:32 Blood Gas Comments Odilon well 09/01/22 13:32 Sodium 137 mmol/L (136-145) 09/04/22 06:25 Corrected Sodium 137 mmol/L (136-145) 09/04/22 06:25 Potassium 4.3 mmol/L (3.5-5.1) 09/04/22 06:25 Chloride 105 mmol/L (98-107) 09/04/22 06:25 Carbon Dioxide 23.3 mmol/L (21-32) 09/04/22 06:25 BUN 10 mg/dL (7-18) 09/04/22 06:25 Creatinine 1.20 mg/dL (0.70-1.30) 09/04/22 06:25 Est GFR (MDRD) Af Amer > 60 (>60) 09/04/22 06:25 Est GFR (MDRD) Non-Af > 60 (>60) 09/04/22 06:25 Glucose 114 mg/dL (65-99) H 09/04/22 06:25 POC Glucose (mg/dL) 155 mg/dL (65-99) H 09/04/22 11:03 Lactic Acid 1.1 mmol/L (0.4-2.0) 09/01/22 21:45 Calcium 8.0 mg/dL (8.5-10.1) L 09/04/22 06:25 Corrected Calcium 9.0 mg/dL (8.5-10.1) 09/04/22 06:25 Phosphorus 2.9 mg/dL (2.6-4.7) 09/01/22 09:54 Magnesium 2.0 mg/dL (2.0-2.9) 09/04/22 06:25 Total Bilirubin 0.40 mg/dL (0.2-1.0) 09/04/22 06:25 AST 45 Units/L (15-37) H 09/04/22 06:25 ALT 30 Units/L (12-78) 09/04/22 06:25 Alkaline Phosphatase 66 Units/L (46-116) 09/04/22 06:25 Creatine Kinase 222 Units/L (39-308) 09/01/22 21:45 Troponin I High Sens 32.1 ng/L (4.0-60.0) 09/02/22 02:35 B-Natriuretic Peptide 20.0 pg/mL (0-79) 09/01/22 09:54 Total Protein 6.1 g/dL (6.4-8.2) L 09/04/22 06:25 Albumin 2.7 g/dL (3.4-5.0) L 09/04/22 06:25 Globulin 3.4 g/dL (2.5-4.5) 09/04/22 06:25 Albumin/Globulin Ratio 0.8 Ratio (1.1-2.1) L 09/04/22 06:25 Amylase 89 Units/L (25-115) 09/01/22 09:54 Lipase 61 Units/L (73-393) L 09/01/22 09:54 Specimen Type Clean catch urine 09/01/22 09:30 Urine Color Yellow (YELLOW) 09/01/22 09:30 Urine Appearance Cloudy (CLEAR) 09/01/22 09:30 Urine pH 6.0 (5.0 - 8.0) 09/01/22 09:30 Ur Specific [place] 1.020 (1.000-1.030) 09/01/22 09:30 Urine Protein 2+ (NEGATIVE) 09/01/22 09:30 Urine Glucose (UA) 4+ (NEGATIVE) 09/01/22 09:30 Urine Ketones 1+ (NEGATIVE) 09/01/22 09:30 Urine Blood 2+ (NEGATIVE) 09/01/22 09:30 Urine Nitrite Positive (NEGATIVE) 09/01/22 09:30 Urine Bilirubin Negative (NEGATIVE) 09/01/22 09:30 Urine Urobilinogen Normal (NORMAL) 09/01/22 09:30 Ur Leukocyte Esterase 2+ (NEGATIVE) 09/01/22 09:30 Urine RBC 0-2 /HPF (0-3) 09/01/22 09:30 Urine WBC 30-50 /HPF (0-5) A 09/01/22 09:30 Ur Squamous Epith Cells Few /HPF (NEGATIVE) 09/01/22 09:30 Urine Bacteria 2+ /HPF (NEGATIVE) 09/01/22 09:30 Hyaline Casts Rare /LPF (NEGATIVE) 09/01/22 09:30 Ur Culture Indicated? Yes/culture set up 09/01/22 09:30 Acetone, Semi-Quant Negative (NEGATIVE) 09/01/22 09:54 SARS-CoV-2 (PCR) Positive (NEGATIVE) A 09/01/22 09:20 Influenza Type A (PCR) Negative (NEGATIVE) 09/01/22 09:20 Influenza Type B (PCR) Negative (NEGATIVE) 09/01/22 09:20 RSV (PCR) Negative (NEGATIVE) 09/01/22 09:20 Reason For Visit: SEPSIS, COVID-19 VIRUS INFECTION, BRONCHITIS, Discharge Diagnosis All Active Problems (Updated 09/04/22 @ 08:47 by Gee Bazzi) Arrhythmia (Acute) Sepsis (Acute) COVID-19 virus infection (Acute) Acute dehydration (Acute) Bronchitis (Acute) Hyperglycemia (Acute) UTI (urinary tract infection) (Acute) Plan of Treatment: Continue with present treatment and follow up plan. Pt is to keep follow up appointment as instructed and take medications as ordered. Discharge Medications Discharge Medications: No Known Allergies Allergy (Verified 09/01/22 11:40) CONTINUE taking the following medications aspirin 325 mg tablet 325 mg PO DAILY 09/01/22 [History] atorvastatin 20 mg tablet (Lipitor) 10 mg PO DAILY 09/01/22 [History] calcium carbonate 600 mg calcium (1,500 mg) tablet (Calcium) 1,200 mg PO DAILY 09/01/22 [History] cholecalciferol (vitamin D3) 25 mcg (1,000 unit) tablet 25 mcg PO DAILY 09/01/22 [History] doxazosin 2 mg tablet 2 mg PO HS 09/01/22 [History] glipizide 5 mg tablet 5 mg PO BID 09/01/22 [History] lisinopril 20 mg tablet 10 mg PO DAILY 09/01/22 [History] loratadine 10 mg disintegrating tablet 10 mg PO QDAY 09/01/22 [History] magnesium oxide 420 mg tablet 420 mg PO BID 09/01/22 [History] metformin 500 mg tablet 500 mg PO BID 09/01/22 [History] methocarbamol 750 mg tablet 75 mg PO TID PRN 09/01/22 [History] omeprazole 20 mg capsule,delayed release 20 mg PO DAILY 09/01/22 [History] potassium and sodium monobasic phosphate 155 mg-350 mg tablet 2 tab PO DAILY 09/01/22 [History] sodium di- and monophosphate-potassium phos monobasic 250 mg tablet (Phospha Neutral) 2 tab PO DAILY 09/01/22 [History] tramadol 50 mg tablet 50 mg PO BID PRN 09/01/22 [History] Discharge Disposition Discharge Disposition: Home Discharge Condition: Stable Discharge Plan Discharge Plan Hospital Course: Pt is a 72 year old male admitted for COVID-19, dehydration, and urinary tract infection. His hospital/treatment course included: IVF NS and IV antibiotics Zosyn, and anti-tussive medications. Home medications were resumed. Physical therapy. While in hospital he did appear to have asymptomatic intermittent occurrence of non-atrial fibrillation, non-life threatening cardiac arrhythmia, pt will be set up to follow with cardiology outpatient. Pt responded well to treatment, tolerating po intake, and did not require any supplemental oxygen on discharge. Home PT will be set up by case management. Pt discharged in stable condition. Instructed to follow up with pcp in 1 week. Patient Disposition: HOME HEALTH SERVICE Condition: Stable Health Concerns: Post Hospitalization: new medications and changes needed to prevent readmission or further decline. Pt educated and given instructions on all concerns. Care Plan Goals: Problem: Pain/Alteration in Comfort Goal: Improve/ Resolve Pain; Achieve Pain Tolerance Instructions: Take pain medications as prescribed. Contact your primary care provider if your pain is unrelieved or worsens. Follow up with primary care provider as directed. Plan of Treatment: Continue with present treatment and follow up plan. Pt is to keep follow up appointment as instructed and take medications as ordered. Prescriptions: New cephalexin 500 mg Tablet 500 mg PO BID Qty: 10 0RF No Action metformin 500 mg Tablet 500 mg PO BID atorvastatin [Lipitor] 20 mg Tablet 10 mg PO DAILY magnesium oxide 420 mg Tablet 420 mg PO BID aspirin 325 mg Tablet 325 mg PO DAILY lisinopril 20 mg Tablet 10 mg PO DAILY tramadol 50 mg Tablet 50 mg PO BID PRN calcium carbonate [Calcium 600] 600 mg calcium (1,500 mg) Tablet 1,200 mg PO DAILY methocarbamol 750 mg Tablet 75 mg PO TID PRN omeprazole 20 mg Capsule,Delayed Release(Dr/Ec) 20 mg PO DAILY Rx Instructions: take one capsule by mouth every morning 1/2 before breakfast for stomach K-Phos MF 155-350 mg Tablet 2 tab PO DAILY glipizide 5 mg Tablet 5 mg PO BID doxazosin 2 mg Tablet 2 mg PO HS cholecalciferol (vitamin D3) 25 mcg (1,000 unit) Tablet 25 mcg PO DAILY loratadine 10 mg Tablet,Disintegrating 10 mg PO QDAY Phospha 250 Neutral 250 mg Tablet 2 tab PO DAILY Follow ups/Referrals Follow ups/Referrals: [facility] [Other] - 1 WEEK (Home health) Victor Manuel Myles [STAFF PHYSICIAN] - 1 WEEK (Office will call patient ) Instructions Instructions: COVID-19 Frequently Asked Questions, 10 Things You Can Do to Manage Your COVID-19 Symptoms at Home - CDC (02/10/2020), Acute Bronchitis, Adult, [id number], COVID-19: How to Protect Yourself and Others - [facility] Stand Alone Forms: Excuse From Work or School, [facility], Patient Portal
[2022-09-04 12:28] VITALS: BP 136/63
== END 2022-09-04 16:30 | disposition home health service (06) ==
LOC: ICU 08:48 → ER 08:48 → ICU 14:10
PROVIDERS: ADMIT Internal Medicine; ATTEND Internal Medicine
DX: E11.65 Type 2 diabetes mellitus with hyperglycemia; R94.31 Abnormal electrocardiogram [ECG] [EKG]; E86.0 Dehydration; N39.0 Urinary tract infection, site not specified; I10 Essential (primary) hypertension; I49.8 Other specified cardiac arrhythmias; M25.552 Pain in left hip; U07.1 COVID-19